=== PATIENT | male | born 1945 | race Caucasian/White ===

== ENCOUNTER 2021-02-24 05:40 | Day surgery (SDC) | payer MEDICAID ==
[~2021-02-24] VITALS: Ht 180.3 cm; Wt 75.8 kg
[2021-02-24 06:51] LABS: HEMATOCRIT 42.5 % (42.0-54.0); HEMOGLOBIN 14.3 g/dL (13.5-17.5); MCH 31.9 pg (26.0-34.0); MCHC 33.7 g/dL (31.0-37.0); MCV 94.4 fL (80.0-100.0); MEAN PLATELET VOLUME 8.1 fL (7.4-10.4); RBC 4.5 10x6/uL (4.20-6.10); RDW 13.4 % (11.5-14.5); WBC 5.5 10x3/uL (4.8-10.8)
[2021-02-24 09:21] VITALS: BP 128/81; Ht 180.3 cm; Wt 75.8 kg
[2021-02-24] MEDS ORDERED: FLOMAX0.4 MG PO (09:40)
[2021-02-24] MEDS ORDERED: XOPENEX HFA15 GM INH (09:41)
[2021-02-24] MEDS ORDERED: PROSCAR5 MG (09:41)
--- NOTE | 2021-02-24 12:54 | HP ---
PATIENT: BINA BRITO MEDICAL RECORD: [id number] ACCOUNT: [id number] LOCATION:[facility] : 47 ADMISSION DATE: 02/24/21 PCP: No PCP HISTORY AND PHYSICAL EXAMINATION HISTORY OF PRESENT ILLNESS: The patient has a right inguinal hernia. It is reducible. It has been enlarging. There is scrotal involvement. No obstructive symptoms. The risks, possible complications, and alternatives of the procedure were explained to the patient. He elects to proceed. The discussion specifically included, but was not limited to, bleeding requiring emergency reoperation, infection, chronic pain. He is aware that we will be using mesh. MEDICATIONS AT THE DETENTION: Reviewed. ALLERGIES: No known drug allergies. SOCIAL HISTORY: Nonsmoker. PAST MEDICAL AND SURGICAL HISTORY: BPH, reactive airway disease. PHYSICAL EXAMINATION: GENERAL: The patient does not appear acutely ill. He does not appear chronically ill. VITAL SIGNS: Reviewed. EARS: External ears appear normal. EYES: Extraocular movements are intact. NECK: Trachea is midline. CHEST: No intercostal retractions. PULMONARY: Nonlabored. No stridor. IMPRESSION: Symptomatic right inguinal hernia. PLAN: Right inguinal hernia repair with mesh. TRANSINT:[id number] Voice Confirmation ID: [id number] DOCUMENT ID: [id number] cc: Ning Gilliam APN [phone] LEVY KELLEY MD at 1254 CC: NING GILLIAM APN [phone] DICTATION DATE: 02/24/21 0947 TEAM FOREMAN: 02/24/21 1009 REG [facility] [address] [place] [address]
--- NOTE | 2021-02-24 12:54 | OP ---
PATIENT NAME: BINA BRITO MEDICAL RECORD: [id number] :47 LOCATION:[facility] ADMISSION DATE: SURGEON: LEVY KELLEY MD DATE OF OPERATION: 02/24/2021 PREOPERATIVE DIAGNOSIS: Symptomatic large right inguinal scrotal hernia. POSTOPERATIVE DIAGNOSIS: Symptomatic large right inguinal scrotal hernia. PROCEDURE: Open repair of right indirect inguinal scrotal hernia with bilayered preperitoneal polypropylene mesh. SURGEON: Levy Kelley MD MEDICAL ADVISOR: None. BLOOD LOSS: Minimal. ANESTHESIA: General. COMPLICATIONS: None. The risks, possible complications, and alternatives of the procedure were explained to the patient. He elects to proceed. The discussion specifically included, but was not limited to, bleeding requiring emergency reoperation, infection, intestinal injury as well as chronic pain. OPERATIVE COURSE: The patient was conveyed to the operating room electively on 02/24/2021. General anesthesia was induced by the anesthesia staff. The abdomen and genitals were sterilely prepped and draped. A transverse incision was accomplished in the right groin. Sharp dissection was carried down through the subcutaneous tissue as well as Amparo fascia. External oblique aponeurosis was opened along the direction of its fibers. I bluntly dissected down through the internal oblique and transversus abdominis muscles. A preperitoneal pocket was fashioned bluntly. I reduced an indirect hernia in its entirety. I opened up the hernia sac. There was no sliding component. No incarceration. I then ligated the sac highly with a pursestring 3-0 Vicryl suture. I transected the sac distal to this. I then cut 2 ovals out of a polypropylene mesh. The 2 ovals were sutured together one on top of the other with a running #1 Surgidac. I then placed the mesh in the preperitoneal space. Once I was satisfied with placement of the mesh, I allowed the internal oblique and transversus abdominis muscles to come together. These were sutured together with multiple interrupted horizontal mattress of 0 Surgidacs. I incorporated a portion of the mesh with these sutures. At no time was there any peritoneal nerve injury during this operation. The external oblique aponeurosis was closed with interrupted #1 Vicryls. Amparo's fascia was approximated with interrupted 3-0 Vicryl. The subdermis was approximated with interrupted 3-0 Vicryls. The skin was approximated with a running intracuticular 3-0 Vicryl. Benzoin and Steri-Strips were applied. The patient was then extubated and conveyed to post-anesthesia care unit where he was in stable condition. He will be dismissed back to the [facility] with tramadol as well as Colace. I will see him on a p.r.n. basis. There is no need OPERATIVE REPORT [id number] BINA BRITO for him to follow up with me in the office unless he develops a complication related to this operative procedure. If he needs to see me, I could see him on one of my GI clinic days out at the [facility]. TRANSINT:[id number] Voice Confirmation ID: [id number] DOCUMENT ID: [id number] cc: Ning Gilliam APN [phone] LEVY KELLEY MD at 1254 CC: NING GILLIAM APN [phone] DICTATION DATE: 02/24/21 1120 MEDICAL EQUIPMENT REPAIRER: 02/24/21 1147 REG [facility] [address] [place] [address]
--- NOTE | 2021-02-24 13:47 | NUR ---
[id number] AFTER SPEAKING WITH A BIRCH, FILLING HAND 20 MG OF LABETOLOL INFUSED OVER 10 MINUTES, VS STABLE AND A RETURN TO SINUS RHYTHM, RATE BELOW 100 NOTED. PT TOLERATED WELL.
--- NOTE | 2021-02-24 13:48 | NUR ---
DISCHARGE INSTRUCTIONS GIVEN AND PT VERBALIZED AN UNDERSTANDING. IV D/C'D WITH CANNULA INTACT, PRESSURE HELD AND DRSG PLACED. DRSG CDI. PAIN 10/09. VSS.
== END 2021-02-24 13:30 | disposition home or self-care (01) ==
LOC: D.OPS 05:40
PROVIDERS: Anesthesiology; ATTEND Surgery
DX: K40.90 Unilateral inguinal hernia, without obstruction or gangrene, not specified as recurrent (principal); N40.0 Benign prostatic hyperplasia without lower urinary tract symptoms; J45.909 Unspecified asthma, uncomplicated